=== PATIENT | male | born 1985 | race Native Hawaiian/Other Pacific Islander ===

== ENCOUNTER 2020-04-28 21:47 | Emergency (ER) | payer OTHER ==
[~2020-04-28] VITALS: Ht 175.3 cm; Wt 137.4 kg
[2020-04-28 23:31] LABS: PLATELET COUNT 371 K/uL (142-355)
[2020-04-28 23:37] LABS: POTASSIUM 4.7 mmol/L (3.6-5.2)
[2020-04-29 02:59] VITALS: BP 124/79; TEMP 99
== END 2020-04-29 02:59 | disposition home or self-care (01) ==
LOC: ED 21:47
DX: R10.11 Right upper quadrant pain (principal)
CPT/HCPCS: 80053; 85027; 93005; 96375; 99284; J1885; Q9963

== ENCOUNTER 2020-07-29 21:31 | Emergency (ER) | payer OTHER ==
[~2020-07-29] VITALS: Ht 175.3 cm; Wt 143.3 kg
[2020-07-29 22:12] LABS: PLATELET COUNT 433 K/uL (142-355)
[2020-07-29 23:19] LABS: SODIUM 134 mmol/L (136-145)
[2020-07-30 00:55] VITALS: BP 134/64; TEMP 98.2
== END 2020-07-30 00:58 | disposition home or self-care (01) ==
LOC: ED 21:31
PROVIDERS: Family Medicine
DX: K21.9 Gastro-esophageal reflux disease without esophagitis (principal); R07.89 Other chest pain; R73.9 Hyperglycemia, unspecified; I10 Essential (primary) hypertension; F41.8 Other specified anxiety disorders
CPT/HCPCS: 80053; 81000; 82550; 84484; 85027; 85379; 93005; 96374; 99284; J0360

== ENCOUNTER 2020-08-21 16:41 | Emergency (ER) | payer OTHER ==
[~2020-08-21] VITALS: Ht 175.3 cm; Wt 143.3 kg
[2020-08-21 17:38] LABS: PLATELET COUNT 353 K/uL (142-355)
[2020-08-21 17:44] LABS: POTASSIUM 3.5 mmol/L (3.6-5.2)
[2020-08-21 19:48] VITALS: BP 148/84; TEMP 98.8
== END 2020-08-21 19:52 | disposition home or self-care (01) ==
LOC: ED 16:41
PROVIDERS: Hospitalist
DX: U07.1 COVID-19 (principal); J06.9 Acute upper respiratory infection, unspecified; R11.2 Nausea with vomiting, unspecified
CPT/HCPCS: 80053; 85027; 87502; 87635; 87651; 93005; 96360; 96372; 96375; 99284; J1100; J2405; U0003

== ENCOUNTER 2020-09-07 19:50 | Emergency (ER) | payer OTHER ==
[~2020-09-07] VITALS: Ht 175.3 cm; Wt 142.9 kg
[2020-09-07 20:41] LABS: PLATELET COUNT 388 K/uL (142-355)
[2020-09-07 20:52] LABS: POTASSIUM 3.7 mmol/L (3.6-5.2); SODIUM 140 mmol/L (136-145)
[2020-09-07 21:01] LABS: PARTIAL THROMBOPLASTIN TIME 21.9 SECONDS (24.5-33.6)
[2020-09-07 22:48] VITALS: BP 155/89; TEMP 98.5
== END 2020-09-07 22:48 | disposition home or self-care (01) ==
LOC: ED 19:50
PROVIDERS: Hospitalist
DX: R07.89 Other chest pain (principal); K21.9 Gastro-esophageal reflux disease without esophagitis; U07.1 COVID-19; J06.9 Acute upper respiratory infection, unspecified
CPT/HCPCS: 36415; 80053; 82550; 83880; 84484; 85027; 85610; 85730; 87502; 87635; 87651; 93005; 96374; 96375; 99284; J1100; J1885; J2405; U0003

== ENCOUNTER 2020-09-12 20:02 | Emergency (ER) | payer OTHER ==
[~2020-09-12] VITALS: Ht 175.3 cm; Wt 137.9 kg
[2020-09-12 20:57] LABS: PLATELET COUNT 434 K/uL (142-355)
[2020-09-12 21:04] LABS: SODIUM 140 mmol/L (136-145)
[2020-09-12 22:35] VITALS: BP 138/86; TEMP 98.5
== END 2020-09-12 22:35 | disposition home or self-care (01) ==
LOC: ED 20:02
PROVIDERS: Emergency Medicine Emergency Medical Services
DX: F41.8 Other specified anxiety disorders (principal); R07.89 Other chest pain; Z20.828 Contact with and (suspected) exposure to other viral communicable diseases
CPT/HCPCS: 36415; 80053; 81000; 84484; 85027; 87635; 93005; 96360; 96375; 99284; J2060; U0003

== ENCOUNTER 2020-10-03 23:44 | Emergency (ER) | payer OTHER ==
[~2020-10-03] VITALS: Ht 175.3 cm; Wt 137.9 kg
[2020-10-04 00:49] LABS: PLATELET COUNT 436 K/uL (142-355)
[2020-10-04 00:58] LABS: POTASSIUM 3.6 mmol/L (3.6-5.2); SODIUM 138 mmol/L (136-145)
[2020-10-04 01:24] LABS: PARTIAL THROMBOPLASTIN TIME 24.4 SECONDS (24.5-33.6)
[2020-10-04 04:47] VITALS: BP 141/81; TEMP 97.9
== END 2020-10-04 04:48 | disposition home or self-care (01) ==
LOC: ED 23:55
DX: R07.89 Other chest pain (principal); F41.8 Other specified anxiety disorders
CPT/HCPCS: 36415; 80053; 82550; 84484; 85027; 85610; 85730; 93005; 99283

== ENCOUNTER 2020-12-11 01:20 | Emergency (ER) | payer OTHER ==
[~2020-12-11] VITALS: Ht 175.3 cm; Wt 103.9 kg
[2020-12-11 02:34] LABS: PLATELET COUNT 362 K/uL (142-355)
[2020-12-11 02:40] LABS: POTASSIUM 3.2 mmol/L (3.6-5.2)
[2020-12-11 03:57] VITALS: BP 131/83; TEMP 97.9
== END 2020-12-11 03:57 | disposition home or self-care (01) ==
LOC: ED 01:20
PROVIDERS: Family Medicine
DX: K29.60 Other gastritis without bleeding (principal); R11.2 Nausea with vomiting, unspecified; E87.6 Hypokalemia
CPT/HCPCS: 80053; 81000; 82150; 83690; 85027; 96360; 96375; 99284; J2405; J3490

== ENCOUNTER 2021-10-05 21:17 | Emergency (ER) | payer OTHER ==
[~2021-10-05] VITALS: Ht 171.4 cm; Wt 71.7 kg
[2021-10-05 22:49] LABS: PLATELET COUNT 318 K/uL (142-355)
[2021-10-05 22:55] LABS: POTASSIUM 4.4 mmol/L (3.6-5.2)
[2021-10-05 23:35] VITALS: BP 106/68; TEMP 97.9
== END 2021-10-05 23:35 | disposition home or self-care (01) ==
LOC: ED 21:17
PROVIDERS: Emergency Medicine
DX: F41.8 Other specified anxiety disorders (principal); I95.89 Other hypotension
CPT/HCPCS: 36415; 80053; 80307; 80320; 81000; 85027; 99283

== ENCOUNTER 2022-01-25 17:19 | Emergency (ER) | payer OTHER ==
[~2022-01-25] VITALS: Ht 171.4 cm; Wt 74.4 kg
[2022-01-25 17:25] VITALS: BP 114/65; TEMP 97.6
== END 2022-01-25 18:30 | disposition home or self-care (01) ==
LOC: ED 17:19
DX: R30.0 Dysuria (principal)
CPT/HCPCS: 81000; 96372; 99283; J0696